=== PATIENT | female | born 1985 | race Caucasian/White ===

== ENCOUNTER 2017-08-19 14:12 | Emergency (ER) | payer OTHER ==
[~2017-08-19] VITALS: Ht 157.5 cm; Wt 50.9 kg
[~2017-08-19 14:12] MED LIST: ATARAX,VISTARIL25 MG PO; DESONIDE15 G1 TP; Motrin PO; NO MEDS
[2017-08-19 14:34] LABS: HEMATOCRIT 44.9 % (36.0-46.0); HEMOGLOBIN 15.6 G/DL (11.9-15.5); MCH 32.4 PG (29.0-34.0); MCHC 34.7 G/DL (30.0-36.0); MCV 93.3 FL (83-99); PLATELET COUNT 192 K/uL (156-360); RBC DIS.WIDTH-CV 12.2 % (11.8-14.6); RBC DIS.WIDTH-SD 42.5 % (39-53); RED BLOOD COUNT 4.81 M/uL (3.80-5.20); WHITE BLOOD COUNT 11.3 K/uL (4.1-10.2)
[2017-08-19 15:03] LABS: CHLORIDE 105 mEq/L (99-109); POTASSIUM 3.2 mEq/L (3.7-5.4); SODIUM 137 mEq/L (136-147)
[2017-08-19 15:05] LABS: GLUCOSE 163 mg/dL (70-99)
[2017-08-19 15:09] LABS: CREATININE 0.7 mg/dL (0.6-1.3); GFR ESTIMATE (CALCULATED) > 59 mL/min/
[2017-08-19 15:10] LABS: UREA NITROGEN (BUN) 12 mg/dL (9-23)
[2017-08-19 15:28] LABS: SERUM ETHYL ALCOHOL < 10 mg/dL
[2017-08-19 17:31] VITALS: BP 105/58
== END 2017-08-19 17:52 | disposition home or self-care (01) ==
LOC: EME 14:12
PROVIDERS: Emergency Medicine
DX: E86.0 Dehydration (principal); E83.51 Hypocalcemia; E87.6 Hypokalemia; F17.200 Nicotine dependence, unspecified, uncomplicated
CPT/HCPCS: 80047; 80048; 82330; 85027; 93005; 99281; 99284; G0480; J0610; J2060; J7030; J7050